=== PATIENT | male | born 1990 | race Caucasian/White ===

== ENCOUNTER 2022-09-10 13:19 | Inpatient (IN) | payer OTHER ==
[2022-09-10 13:43] LABS: #Lymphocytes 2.2 thou/uL (1.20-3.40); #Neutrophils 10.7 thou/uL (1.40-6.50); %Basophils 0.2 % (0.0-1.0); %Eosinophils 0.2 % (0.0-10.0); %Lymphocytes 15.6 % (21.0-51.0); %Monocytes 7.1 % (0.0-10.0); %Neutrophils 76.9 % (42.0-75.0); Mean Corpuscular HGB CONC 35.3 g/dL (32.0-36.0); Mean Corpuscular Hemoglobin 31.1 pg (27.0-31.0); Mean Corpuscular Volume 88.2 fl (78.0-98.0); Mean Platelet Volume 7.6 fL (7.4-10.4); Platelet Count 298 10x3/uL (130-400); RBC Distribution Width 11.6 % (11.5-14.5); Red Blood Cell (RBC) Count 5.79 mill/uL (4.70-6.10); White Blood Cell (WBC) Count 13.9 10x3/uL (4.8-10.8)
[2022-09-10] MEDS ORDERED: Ondansetron PF 4 MG/2 ML Vial ONE (13:44)
[2022-09-10 14:03] LABS: ALT (SGPT) 37 U/L (8-55); AST (SGOT) 36 U/L (5-34); Albumin 5.1 g/dL (3.5-5.0); Alkaline Phosphatase 45 U/L (40-110); Anion Gap 24 mmol/L (10-20); BUN (Urea Nitrogen) 50 mg/dL (8.9-20.6); Bilirubin, Total 0.7 mg/dL (0.2-1.2); Calc. Creatinine Clearance 0 mL/min (70-130); Calcium 10.2 mg/dL (7.8-10.44); Carbon Dioxide 23 mmol/L (22-29); Chloride 93 mmol/L (98-107); Estimated GFR 9; Globulin 3.5 g/dL (2.4-3.5); Glucose 116 mg/dL (70-105); Protein, Total 8.6 g/dL (6.0-8.3); Sodium 136 mmol/L (136-145)
[2022-09-10 14:13] LABS: Albumin 5.1 g/dL (3.5-5.0); Anion Gap 23 mmol/L (10-20); Bilirubin, Total 0.7 mg/dL (0.2-1.2); Calcium 10.1 mg/dL (7.8-10.44); Carbon Dioxide 23 mmol/L (22-29); Chloride 93 mmol/L (98-107); Globulin 3.4 g/dL (2.4-3.5); Glucose 114 mg/dL (70-105); Potassium 3.9 mmol/L (3.5-5.1); Protein, Total 8.5 g/dL (6.0-8.3); Sodium 135 mmol/L (136-145)
[2022-09-10 15:08] LABS: Actual Bicarbonate (HCO3v) 22.7 mEq/L (22-28); Base Excess -3.4 mEq/L (-2.0 to +3.0); Calcium, Ionized (venous) 1.02 mmol/L (1.16-1.32); Chloride (VBG) 95 mmol/L (98-106); Hematocrit-VBG 49 % (42.0-52.0); Hemoglobin (Hb) 16.8 g/dL (13.2-17.3); Potassium (VBG) 3.85 mmol/L (3.70-5.30); Sodium 136.3 mmol/L (133-146); pH (venous) 7.327 (7.32-7.43)
[2022-09-10 15:16] LABS: ALT (SGPT) 37 U/L (8-55); AST (SGOT) 37 U/L (5-34); Alkaline Phosphatase 45 U/L (40-110); BUN (Urea Nitrogen) 52 mg/dL (8.9-20.6); Calc. Creatinine Clearance 0 mL/min (70-130); Estimated GFR 10; Lipase 49 U/L (8-78)
[2022-09-10] MEDS ORDERED: Ondansetron ODT 4 MG TAB PO PRN (16:07)
[2022-09-10] MEDS ORDERED: Calcium Carbonate 500 MG ChewTAB PO PRN (16:07)
[2022-09-10] MEDS ORDERED: Acetaminophen 325 MG TAB PO PRN (16:07)
[2022-09-10] MEDS ORDERED: Ondansetron PF 4 MG/2 ML Vial IVP PRN (16:07)
[2022-09-10] MEDS ORDERED: Lorazepam 2 MG/ML VIAL IM PRN (16:11)
[2022-09-10] MEDS ORDERED: Lorazepam 1 MG TAB PO PRN (16:11)
[2022-09-10] MEDS ORDERED: Sodium Chloride 0.9% 1,000 ML IV SCH ×3 (16:15→23:00)
[2022-09-10] MEDS ORDERED: Thiamine 100 MG TAB PO SCH (16:45)
[2022-09-10 16:59] VITALS: BMI 35.7
[2022-09-10] MEDS ORDERED: cloNIDine 0.1 MG TAB PO PRN (17:57)
[2022-09-10] MEDS ORDERED: Folic Acid 1 MG, Thiamine HCl 100 MG in Dextrose 5 %-0.45 % NaCl 1,000 ML IV SCH (18:00)
[2022-09-10] MEDS: Sodium Chloride 0.9% 1,000 ML IV SCH ×2 (18:43→23:50)
[2022-09-10 18:55] LABS: Bilirubin Negative (Negative); Blood, Urine 2+ (Negative); Clarity Extra Turbid (Clear); Glucose, Urine (Dipstick) 30 mg/dL (Negative); Ketone, Urine Negative (Negative); Leukocyte Negative Leu/uL (Negative); Nitrite Negative (Negative); Protein, Urine (Dipstick) 100 mg/dL (Neg-Trace); RBC/HPF 0-3 HPF (0-3); Specific Gravity, Urine 1.021 (1.002-1.036); Squamous Epithelial 0-3 HPF (0-3); WBC/HPF 0-3 HPF (0-3)
[2022-09-10 18:56] LABS: Bacteria/HPF 1+ HPF (None Seen)
[2022-09-10 18:58] LABS: Amphetamine Not Detected (NotDetected); Barbiturates Screen Not Detected (NotDetected); Benzodiazepine Screen Not Detected (NotDetected); Cocaine Metabolite Screen Not Detected (NotDetected); Methadone Not Detected (NotDetected); Methamphetamine Not Detected (NotDetected); Opiate Screen Not Detected (NotDetected); Oxycodone Screen Not Detected (NotDetected); Phencyclidine (PCP) Not Detected (NotDetected); THC/Cannabinoid Screen Not Detected (NotDetected); Tricyclic Screen Not Detected (NotDetected)
[2022-09-10 19:32] LABS: Creatinine, Urine 357.11 mg/dL (63-166)
[2022-09-10 20:25] LABS: Anion Gap 19 mmol/L (10-20); BUN (Urea Nitrogen) 55 mg/dL (8.9-20.6); CK (CPK) 842 U/L (30-200); Calc. Creatinine Clearance 27 mL/min (70-130); Calcium 8.5 mg/dL (7.8-10.44); Carbon Dioxide 25 mmol/L (22-29); Chloride 98 mmol/L (98-107); Estimated GFR 11; Glucose 113 mg/dL (70-105); Potassium 3.9 mmol/L (3.5-5.1); Sodium 138 mmol/L (136-145)
[2022-09-10] MEDS ORDERED: Famotidine/PF 20 mg/2ml Vial SLOW IVP SCH (21:00)
[2022-09-10] MEDS ORDERED: Famotidine 20 MG TAB PO SCH (21:00)
[2022-09-10] MEDS ORDERED: Heparin 5,000 UNITS/ML VIAL SC SCH (21:00)
[2022-09-10] MEDS ORDERED: Pantoprazole 40 MG VIAL IVP SCH (21:00)
[2022-09-11 04:33] LABS: #Eosinphils 0.1 thou/uL (0.0-0.7); #Lymphocytes 2.9 thou/uL (1.20-3.40); #Monocytes 0.6 thou/uL (0.11-0.59); %Basophils 0.6 % (0.0-1.0); %Lymphocytes 33.7 % (21.0-51.0); %Monocytes 7.3 % (0.0-10.0); %Neutrophils 57.5 % (42.0-75.0); Hemoglobin 13.3 g/dL (14.0-18.0); Mean Corpuscular HGB CONC 34.3 g/dL (32.0-36.0); Mean Corpuscular Hemoglobin 30.7 pg (27.0-31.0); Mean Corpuscular Volume 89.5 fl (78.0-98.0); Mean Platelet Volume 7.5 fL (7.4-10.4); Platelet Count 196 10x3/uL (130-400); RBC Distribution Width 11.2 % (11.5-14.5); Red Blood Cell (RBC) Count 4.32 mill/uL (4.70-6.10); White Blood Cell (WBC) Count 8.7 10x3/uL (4.8-10.8)
[2022-09-11] MEDS: Sodium Chloride 0.9% 1,000 ML IV SCH ×3 (04:47→22:11)
[2022-09-11 04:51] LABS: Phosphorus 4.4 mg/dL (2.3-4.7)
[2022-09-11 04:59] LABS: ALT (SGPT) 26 U/L (8-55); AST (SGOT) 23 U/L (5-34); Albumin 3.6 g/dL (3.5-5.0); Alkaline Phosphatase 35 U/L (40-110); Anion Gap 16 mmol/L (10-20); BUN (Urea Nitrogen) 57 mg/dL (8.9-20.6); Bilirubin, Total 0.3 mg/dL (0.2-1.2); CK (CPK) 736 U/L (30-200); Calc. Creatinine Clearance 43 mL/min (70-130); Calcium 8.3 mg/dL (7.8-10.44); Carbon Dioxide 22 mmol/L (22-29); Chloride 103 mmol/L (98-107); Estimated GFR 19; Globulin 2.3 g/dL (2.4-3.5); Glucose 107 mg/dL (70-105); Magnesium 2.7 mg/dL (1.6-2.6); Potassium 3.7 mmol/L (3.5-5.1); Protein, Total 5.9 g/dL (6.0-8.3); Sodium 137 mmol/L (136-145)
[2022-09-11] MEDS: Multivit, Therapeutic 1 TAB PO SCH (09:13)
[2022-09-11] MEDS: Thiamine 100 MG TAB PO SCH (09:14)
[2022-09-11] MEDS: Folic Acid 1 MG TAB PO SCH (09:14)
[2022-09-11] MEDS ORDERED: Lorazepam 1 MG TAB PO PRN (16:11)
[2022-09-12] MEDS: Sodium Chloride 0.9% 1,000 ML IV SCH ×2 (03:00→05:49)
[2022-09-12 07:03] LABS: #Eosinphils 0.2 thou/uL (0.0-0.7); #Monocytes 0.6 thou/uL (0.11-0.59); #Neutrophils 3.1 thou/uL (1.40-6.50); %Basophils 0.6 % (0.0-1.0); %Lymphocytes 38.4 % (21.0-51.0); %Monocytes 9.8 % (0.0-10.0); Hemoglobin 12.7 g/dL (14.0-18.0); Mean Corpuscular HGB CONC 33.3 g/dL (32.0-36.0); Mean Corpuscular Hemoglobin 29.7 pg (27.0-31.0); Mean Platelet Volume 9.7 fL (7.4-10.4); Platelet Count 182 10x3/uL (130-400); RBC Distribution Width 11.9 % (11.5-14.5); Red Blood Cell (RBC) Count 4.28 mill/uL (4.70-6.10); White Blood Cell (WBC) Count 6.4 10x3/uL (4.8-10.8)
[2022-09-12 07:29] LABS: Albumin 3.5 g/dL (3.5-5.0); Anion Gap 8 mmol/L (10-20); BUN (Urea Nitrogen) 26 mg/dL (8.9-20.6); BUN/Creatinine Ratio 22.22; CK (CPK) 311 U/L (30-200); Calc. Creatinine Clearance 162 mL/min (70-130); Calcium 8.5 mg/dL (7.8-10.44); Carbon Dioxide 27 mmol/L (22-29); Chloride 112 mmol/L (98-107); Estimated GFR 86; Glucose 99 mg/dL (70-105); Phosphorus 2.2 mg/dL (2.3-4.7); Potassium 4.3 mmol/L (3.5-5.1); Sodium 143 mmol/L (136-145)
[2022-09-12] MEDS ORDERED: NIFEdipine XL 60 MG TAB PO SCH (09:00)
[2022-09-12] MEDS ORDERED: NIFEdipine XL 30 MG TAB PO SCH ×2 (09:00→13:15)
[2022-09-12] MEDS: Multivit, Therapeutic 1 TAB PO SCH (09:28)
[2022-09-12] MEDS: Folic Acid 1 MG TAB PO SCH (09:28)
[2022-09-12] MEDS: Thiamine 100 MG TAB PO SCH (09:28)
[2022-09-12] MEDS ORDERED: Lorazepam 1 MG TAB PO PRN (16:11)
[2022-09-12 16:34] VITALS: BP 133/75; TEMP 97.9
[2022-09-13] MEDS ORDERED: Lorazepam 0.5 MG TAB PO PRN (16:11)
== END 2022-09-12 17:15 | disposition home or self-care (01) | DRG 682 ==
LOC: ERS 13:19 → 2NO 15:16
PROVIDERS: ADMIT Internal Medicine; ATTEND Internal Medicine
DX: N17.9 Acute kidney failure, unspecified (principal); R57.1 Hypovolemic shock; E87.0 Hyperosmolality and hypernatremia; M62.82 Rhabdomyolysis; E87.20 Acidosis, unspecified; E87.1 Hypo-osmolality and hyponatremia; F17.220 Nicotine dependence, chewing tobacco, uncomplicated; E86.0 Dehydration; D72.829 Elevated white blood cell count, unspecified; F10.20 Alcohol dependence, uncomplicated; I15.9 Secondary hypertension, unspecified; Z98.890 Other specified postprocedural states
CPT/HCPCS: 36415; 74176; 80053; 80069; 80306; 81001; 82088; 82550; 82570; 82805; 83690; 83735; 84100; 84156; 84244; 84300; 84484; 84540; 85025; 93005; 96361; 96374; J2405; J3411; J7042; J7050